=== PATIENT | male | born 1960 | race Caucasian/White ===

== ENCOUNTER 2021-03-09 13:33 | Inpatient (IN) ==
[2021-03-09] MEDS ORDERED: DEXTROSE 50% 25 GM/50 ML VIAL IV PRN ×2 (18:32)
[2021-03-09] MEDS ORDERED: ACETAMINOPHEN 325 MG TABLET PO PRN (18:32)
[2021-03-09] MEDS ORDERED: GLUCAGON 1 MG VIAL IM PRN ×2 (18:32)
[2021-03-09] MEDS ORDERED: hydrALAZINE 20 MG/1 ML VIAL IV PRN (18:32)
[2021-03-09 19:20] LABS: Basophils % 0.1 % (0.0-0.8); Eosinophils % 0.3 % (0.00-10.9); Hematocrit 48.1 VOL% (42.0-52.0); Hemoglobin 15.7 GM/DL (14.0-18.0); Immature Granulocytes % 0.8 %; Immature Granulocytes Absolute 0.09 #; Lymphocytes # 2.8 10*3/uL (1.4-4.0); Mean Corpuscular HGB Conc 32.6 GM/DL (32-36); Mean Platelet Volume 9.8 FL (9.6-12.0); Monocytes % 6.5 % (1.7-12.7); Neutrophils % 68.3 % (38.7-73.9); Platelet Count 169 T/CUMM (130-400); Red Blood Count 5.53 MC/CUMM (3.8-5.5); Red Cell Distribution Width 16.1 % (9.3-17.3); White Blood Count 11.6 T/CUMM (4-12)
[2021-03-09 19:54] LABS: Risk Ratio 2.44; Thyroid Stimulating Hormone 2.09 uIU/ml (0.358-3.74); VLDL Cholesterol 23.4 MG/DL
[2021-03-09 19:57] LABS: Albumin 3.4 G/DL (3.4-5.0); Bilirubin,Total 0.8 MG/DL (0.20-1.00); Calcium 9.1 MG/DL (8.5-10.1); Osmolality,Calculated 274.1 MOS/KG (273-304); Potassium 3.9 MMOL/L (3.5-5.1); Total Protein 6.3 G/DL (6.4-8.2)
[2021-03-09] MEDS: APIXABAN 5 MG TABLET PO SCH (22:17)
[2021-03-09] MEDS: carvediloL 6.25 MG TABLET PO SCH (22:17)
[2021-03-09] MEDS: INSULIN LISPRO 100 UNIT/ML SUBCUT SCH (22:19)
[2021-03-09] MEDS: ACETAMINOPHEN 325 MG TABLET PO SCH (22:19)
[2021-03-09] MEDS: diphenhydrAMINE 50 MG/1 ML VIAL IV SCH (22:21)
[2021-03-09] MEDS: FUROSEMIDE 20 MG/2 ML VIAL IV SCH (22:22)
[2021-03-09] MEDS: IMMUNE GLOBULIN IV SCH (23:09)
[2021-03-09] MEDS: [UNRECOGNIZED DRUG - OTHER] IV SCH (23:09)
[2021-03-10] MEDS: INSULIN LISPRO 100 UNIT/ML SUBCUT SCH ×4 (08:43→21:08)
[2021-03-10] MEDS: FUROSEMIDE 20 MG/2 ML VIAL IV SCH ×2 (08:45→16:25)
[2021-03-10] MEDS: PANTOPRAZOLE 40 MG TABLET PO SCH (08:47)
[2021-03-10] MEDS: ACETAMINOPHEN 325 MG TABLET PO SCH ×3 (08:47→20:59)
[2021-03-10] MEDS: APIXABAN 5 MG TABLET PO SCH ×2 (08:48→21:00)
[2021-03-10] MEDS: carvediloL 6.25 MG TABLET PO SCH ×2 (08:48→21:00)
[2021-03-10] MEDS: diphenhydrAMINE 50 MG/1 ML VIAL IV SCH ×3 (08:49→21:00)
[2021-03-10] MEDS: TRIAMCINOLONE 0.025% CREAM 15 GM TUBE TOP SCH ×2 (16:25→21:08)
[2021-03-10] MEDS ORDERED: MORPHINE 2 MG/1 ML SYRINGE IV ONE (22:02)
[2021-03-10] MEDS ORDERED: CYCLOBENZAPRINE 10 MG TABLET PO ONE (22:19)
[2021-03-10] MEDS: IMMUNE GLOBULIN IV SCH (22:26)
[2021-03-10] MEDS: [UNRECOGNIZED DRUG - OTHER] IV SCH (22:26)
[2021-03-11 05:47] LABS: Free T4 (Free Thyroxine) 1.26 NG/DL (0.76-1.46)
[2021-03-11] MEDS: INSULIN LISPRO 100 UNIT/ML SUBCUT SCH ×4 (08:11→21:15)
[2021-03-11] MEDS: PANTOPRAZOLE 40 MG TABLET PO SCH (09:40)
[2021-03-11] MEDS: APIXABAN 5 MG TABLET PO SCH ×2 (09:41→20:41)
[2021-03-11] MEDS: carvediloL 6.25 MG TABLET PO SCH ×2 (09:41→20:41)
[2021-03-11] MEDS: FUROSEMIDE 20 MG/2 ML VIAL IV SCH ×2 (09:42→15:57)
[2021-03-11] MEDS: ONDANSETRON 4 MG/2 ML VIAL IV PRN (09:48)
[2021-03-11] MEDS: TRIAMCINOLONE 0.025% CREAM 15 GM TUBE TOP SCH ×2 (09:49→21:16)
[2021-03-11] MEDS: [UNRECOGNIZED DRUG - OTHER] IV SCH ×2 (12:23→20:03)
[2021-03-11] MEDS: IMMUNE GLOBULIN IV SCH ×2 (12:23→20:03)
[2021-03-11] MEDS ORDERED: CYCLOBENZAPRINE 10 MG TABLET PO PRN (13:07)
[2021-03-11] MEDS ORDERED: CLOTRIMAZOLE 1% CREAM 15 GM TUBE TOP SCH (13:30)
[2021-03-11] MEDS: metFORMIN 500 MG TABLET PO SCH (15:53)
[2021-03-11] MEDS: INSULIN GLARGINE 100 UNIT/ML SUBCUT SCH (19:00)
[2021-03-11] MEDS: ACETAMINOPHEN 325 MG TABLET PO SCH (19:30)
[2021-03-11] MEDS: diphenhydrAMINE 50 MG/1 ML VIAL IV SCH (19:30)
[2021-03-12] MEDS: MULTIVITAMIN (CENTRUM) TABLET PO SCH (08:51)
[2021-03-12] MEDS: PANTOPRAZOLE 40 MG TABLET PO SCH (08:52)
[2021-03-12] MEDS: FERROUS SULFATE 325 MG TABLET PO SCH (08:52)
[2021-03-12] MEDS: metOLazone 5 MG TABLET PO SCH (08:52)
[2021-03-12] MEDS: APIXABAN 5 MG TABLET PO SCH ×2 (08:52→21:28)
[2021-03-12] MEDS: TAMSULOSIN 0.4 MG CAPSULE PO SCH (08:52)
[2021-03-12] MEDS: carvediloL 6.25 MG TABLET PO SCH ×2 (08:53→21:28)
[2021-03-12] MEDS: predniSONE 10 MG TABLET PO SCH (08:53)
[2021-03-12] MEDS: ONDANSETRON 4 MG/2 ML VIAL IV PRN (08:54)
[2021-03-12] MEDS: FUROSEMIDE 20 MG/2 ML VIAL IV SCH ×2 (08:54→16:49)
[2021-03-12] MEDS: INSULIN LISPRO 100 UNIT/ML SUBCUT SCH ×4 (08:55→21:00)
[2021-03-12] MEDS: metFORMIN 500 MG TABLET PO SCH ×2 (08:57→16:48)
[2021-03-12] MEDS: TRIAMCINOLONE 0.025% CREAM 15 GM TUBE TOP SCH ×2 (09:55→21:52)
[2021-03-12] MEDS: diphenhydrAMINE 50 MG/1 ML VIAL IV SCH (20:19)
[2021-03-12] MEDS: ACETAMINOPHEN 325 MG TABLET PO SCH (20:19)
[2021-03-12] MEDS: INSULIN GLARGINE 100 UNIT/ML SUBCUT SCH (21:29)
[2021-03-12] MEDS: IMMUNE GLOBULIN IV SCH (21:46)
[2021-03-12] MEDS: [UNRECOGNIZED DRUG - OTHER] IV SCH (21:46)
[2021-03-13 03:56] LABS: Basophils % 0.1 % (0.0-0.8); Eosinophils # 0.1 10*3/uL (0.0-0.87); Hematocrit 39.6 VOL% (42.0-52.0); Immature Granulocytes % 0.7 %; Immature Granulocytes Absolute 0.05 #; Lymphocytes % 30.4 % (21.2-54.2); Mean Corpuscular HGB Conc 32.6 GM/DL (32-36); Mean Corpuscular Volume 88.2 FL (87-102); Mean Platelet Volume 9.6 FL (9.6-12.0); Monocytes % 8.5 % (1.7-12.7); Neutrophils % 59.3 % (38.7-73.9); Platelet Count 138 T/CUMM (130-400); Red Blood Count 4.49 MC/CUMM (3.8-5.5); Red Cell Distribution Width 15.5 % (9.3-17.3); White Blood Count 6.7 T/CUMM (4-12)
[2021-03-13 03:59] LABS: Hemoglobin 12.9 GM/DL (14.0-18.0)
[2021-03-13 04:14] LABS: Calcium 8.3 MG/DL (8.5-10.1); Potassium 2.9 MMOL/L (3.5-5.1)
[2021-03-13 04:41] LABS: Osmolality,Calculated 261.9 MOS/KG (273-304)
[2021-03-13] MEDS: APIXABAN 5 MG TABLET PO SCH ×2 (10:04→21:12)
[2021-03-13] MEDS: predniSONE 10 MG TABLET PO SCH (10:04)
[2021-03-13] MEDS: metFORMIN 500 MG TABLET PO SCH ×2 (10:04→17:37)
[2021-03-13] MEDS: carvediloL 6.25 MG TABLET PO SCH ×2 (10:04→21:13)
[2021-03-13] MEDS: PANTOPRAZOLE 40 MG TABLET PO SCH (10:04)
[2021-03-13] MEDS: FERROUS SULFATE 325 MG TABLET PO SCH (10:04)
[2021-03-13] MEDS: TAMSULOSIN 0.4 MG CAPSULE PO SCH (10:04)
[2021-03-13] MEDS: metOLazone 5 MG TABLET PO SCH (10:04)
[2021-03-13] MEDS: MULTIVITAMIN (CENTRUM) TABLET PO SCH (10:05)
[2021-03-13] MEDS: POTASSIUM CHLORIDE 20 MEQ TABLET PO PRN ×4 (10:05→17:37)
[2021-03-13] MEDS: FUROSEMIDE 20 MG/2 ML VIAL IV SCH ×2 (10:05→17:37)
[2021-03-13] MEDS: TRIAMCINOLONE 0.025% CREAM 15 GM TUBE TOP SCH ×2 (10:06→21:14)
[2021-03-13] MEDS: INSULIN LISPRO 100 UNIT/ML SUBCUT SCH ×4 (10:57→22:37)
[2021-03-13] MEDS: ACETAMINOPHEN 325 MG TABLET PO SCH (20:46)
[2021-03-13] MEDS: INSULIN GLARGINE 100 UNIT/ML SUBCUT SCH (20:47)
[2021-03-13] MEDS: diphenhydrAMINE 50 MG/1 ML VIAL IV SCH (20:47)
[2021-03-13] MEDS: IMMUNE GLOBULIN IV SCH (21:11)
[2021-03-13] MEDS: [UNRECOGNIZED DRUG - OTHER] IV SCH (21:11)
[2021-03-14 04:30] LABS: Basophils % 0.5 % (0.0-0.8); Eosinophils # 0.1 10*3/uL (0.0-0.87); Eosinophils % 1.2 % (0.00-10.9); Hematocrit 43.2 VOL% (42.0-52.0); Hemoglobin 13.9 GM/DL (14.0-18.0); Immature Granulocytes % 0.5 %; Immature Granulocytes Absolute 0.03 #; Lymphocytes # 2.3 10*3/uL (1.4-4.0); Lymphocytes % 34.9 % (21.2-54.2); Mean Corpuscular HGB Conc 32.2 GM/DL (32-36); Mean Corpuscular Volume 88.9 FL (87-102); Mean Platelet Volume 9.2 FL (9.6-12.0); Monocytes % 9.5 % (1.7-12.7); Neutrophils % 53.4 % (38.7-73.9); Platelet Count 137 T/CUMM (130-400); Red Blood Count 4.86 MC/CUMM (3.8-5.5); Red Cell Distribution Width 15.4 % (9.3-17.3); White Blood Count 6.5 T/CUMM (4-12)
[2021-03-14 04:54] LABS: Hypochromasia Slight
[2021-03-14 04:55] LABS: Microcytosis Slight
[2021-03-14 05:08] LABS: Calcium 8.6 MG/DL (8.5-10.1); Osmolality,Calculated 265.7 MOS/KG (273-304); Potassium 3.9 MMOL/L (3.5-5.1)
[2021-03-14] MEDS: INSULIN LISPRO 100 UNIT/ML SUBCUT SCH ×2 (09:18→14:01)
[2021-03-14] MEDS: metFORMIN 500 MG TABLET PO SCH (10:25)
[2021-03-14] MEDS ORDERED: DOCUSATE SODIUM 100 MG CAPSULE PO SCH (10:30)
[2021-03-14] MEDS ORDERED: POLYETHYLENE GLYCOL POWDER 17 GM PACK PO SCH (10:30)
[2021-03-14] MEDS: FUROSEMIDE 20 MG/2 ML VIAL IV SCH (11:25)
[2021-03-14] MEDS: metOLazone 5 MG TABLET PO SCH (11:26)
[2021-03-14] MEDS: APIXABAN 5 MG TABLET PO SCH (11:26)
[2021-03-14] MEDS: carvediloL 6.25 MG TABLET PO SCH (11:26)
[2021-03-14] MEDS: PANTOPRAZOLE 40 MG TABLET PO SCH (11:26)
[2021-03-14] MEDS: FERROUS SULFATE 325 MG TABLET PO SCH (11:26)
[2021-03-14] MEDS: TRIAMCINOLONE 0.025% CREAM 15 GM TUBE TOP SCH (11:26)
[2021-03-14] MEDS: MULTIVITAMIN (CENTRUM) TABLET PO SCH (11:26)
[2021-03-14] MEDS: predniSONE 10 MG TABLET PO SCH (11:26)
[2021-03-14] MEDS: TAMSULOSIN 0.4 MG CAPSULE PO SCH (11:26)
[2021-03-14 12:35] VITALS: BP 125/59
== END 2021-03-14 12:40 | disposition home health service (06) | DRG 57 ==
LOC: N.4E 16:45 → SUATTDRO 16:45
PROVIDERS: ADMIT Internal Medicine; ATTEND Internal Medicine